=== PATIENT | female | born 1980 | race Caucasian/White ===

== ENCOUNTER 2016-07-01 14:50 | Emergency (ER) | payer OTHER ==
[2016-07-01 15:53] LABS: HEMOGLOBIN 13.5 gm/dl (12.3-15.3); RED BLOOD COUNT 4.85 M/UL (4.00-5.10); WHITE BLOOD COUNT 10.5 K/UL (4.5-11.0)
[2016-07-01 16:10] LABS: BUN/CREATININE RATIO 10 (0-10)
== END 2016-07-01 18:22 | disposition home or self-care (01) ==
LOC: ER1 14:50
PROVIDERS: Nurse Practitioner Family
DX: D25.9 Leiomyoma of uterus, unspecified (principal); Z88.2 Allergy status to sulfonamides
CPT/HCPCS: 36415; 80053; 81001; 82150; 83690; 84703; 85025; 87086; 96374; 96375; 99284; J2270; J2405; J7050; Q9962